=== PATIENT | male | born 1985 | race Caucasian/White ===

== ENCOUNTER 2018-10-12 09:23 | Emergency (ER) | payer MEDICARE, MEDICAID, SELFPAY ==
[2018-10-12 09:28] VITALS: BP 122/78; PULSE 84; RESP 18; TEMP 37.3; O2SAT 98
--- NOTE | 2018-10-12 09:37 | W.ED.GENAD ---
Discharge Plan Disposition Patient Disposition: HOME Condition: Poor Discharge Details Chief Complaint: DrugWithdr Clinical Impression: Heroin addiction Primary Care Provider: None,None ED Provider: Sherri Karimi Home Meds and New Rx's Prescriptions: New Narcan 4 mg/actuation spray,non-aerosol 1 spray MICHEL ONCE PRN (Reason: opioid overdose) Qty: 2 RF: 0 Discharge Instructions Instructions: Narcotic Abuse (ED) Additional Instructions: You will need to contact treatment centers to discuss rehabilitation options. I did call [facility] today and they currently have bed availability. You may also reach out to [facility] to discuss local options. Attached is a list of local facilities that can help with your addiction issues. If you have any new/worsneing symptoms please seek care urgently once again. Narcan prescription is attached, you should have this on hand in the event you have an overdose. Please use as instructed by pharmasist. appointment coordinator will reach out to you with primary care physician Medical Decision Making Patient presents today with c/c of wanting to stop abusing heroin. Reports is been using for quite some time, last used few hours ago. Has not made any attempt recently to stop. Has attended rehab in the past with short-term relief. Patient is not having symptoms of acute withdrawal. He does report that he gets tremors, anxious, general feeling unwell in between his usage times. However, not see any evidence of acute withdrawal at this time. Vital signs within normal limits. Spoke with Maxine with [facility] who advised that the patient needs to contact the rehab facilities. I discussed this with the patient. I did contact [facility] and they currently have bed availability and advised the patient needs to contact them. Patient reports that he has had 2 friends recently from overdose. Prescribed him Narcan to be used in the event of an overdose. At this time, with frequently the patient is using, I do not feel that prescribing him as it has been another medication to help with withdrawal is appropriate. I am concerned at this time that he uses concomitantly. He will contact [facility] and/or others on the list provided. Advised he may seek care urgently once again with any new or worsening symptom Patient does not have PCP, have asked home care associate to help establish care. HPI General Mode of arrival: ambulatory. Date/Time Provider Initiated Documentation: 10/12/18 09:36. Limitations to Documentation: no limitations. Information obtained by: patient. HPI Narrative: Patient is a 32-year-old male presenting today with chief complaint of wanting detox from heroin. Reports that he uses heroin every 2-3 hours. States that he has been using for several years. Reports that approximately 2 weeks ago he made the decision he wanted to quit. However, he states that since that time he has only increased his usage. He did attend [facility] approximately 1 year ago and reports that he was clean for 1 month. Also used to be patient at [facility] but is no longer able to attend after using profanity toward one of the providers. Has not made an attempt to recheck anybody recently. Last used a few hours ago. Related Data Home Medications Medication Instructions Recorded Confirmed naloxone [Narcan] 1 spray MICHEL ONCE PRN #2 each 10/12/18 Previous Rx's Medication Instructions Recorded naloxone [Narcan] 1 spray MICHEL ONCE PRN #2 each 10/12/18 Allergies Allergy/AdvReac Type Severity Reaction Status Date / Time No Known Allergies Allergy Unverified 10/12/18 09:38 General Stated Complaint: DrugWithdr MAXIMILIAN: 3 Review of Systems Constitutional Reports as per HPI, Denies chills, Denies fever(s), Denies headache(s) and Denies poor appetite Eyes Denies change in vision ENT Denies headache(s) Cardiovascular Denies chest pain, Denies irregular heart rhythm and Denies dyspnea Respiratory Denies cough and Denies dyspnea Gastrointestinal Denies abdominal pain, Reports nausea and Denies vomiting Musculoskeletal Denies numbness and Denies tingling Neurologic Reports as per HPI, Denies headache(s), Denies numbness, Denies seizure-like activity, Denies tingling, Denies paresthesias and Reports tremor(s) (becomes tremulous between usage times) Psychiatric Reports abnormal sleep pattern, Reports anxiety, Reports difficulty concentrating, Denies auditory hallucinations, Denies hopelessness, Denies hallucinations, Denies homicidal ideation and Denies suicidal ideation [facility] Social History Smoking/Tobacco Use Status: Current every day Exam Const General: cooperative, healthy appearing, comfortable, no acute distress, well developed and well groomed Nutritional Appearance: average body habitus and well nourished Orientation: alert and awake Eyes General: appearance normal, both eyes and all related structures Pupils: PERRL Resp Effort & Inspection: normal respiratory effort and able to speak in complete sentences Auscultation: clear to auscultation bilaterally, no rales, no rhonchi and no wheezes Cardio Rate: regular rate Rhythm: regular rhythm Heart Sounds: S1 normal and S2 normal Skin General skin exam: no rashes or lesions noted Neuro General: alert, awake and oriented x3 Cognition: normal cognition Speech: speech normal Gait: normal gait Psych Appearance: grossly normal and well kempt Mental Status: mental status grossly normal Speech and Movement: speech and movement normal Course Vital Signs Temperature 37.3 C 10/12/18 09:28 Pulse 84 10/12/18 09:28 Respiratory Rate 18 10/12/18 09:28 Blood Pressure 122/78 10/12/18 09:28 Pulse Oximetry 98 10/12/18 09:28 Temperature 37.3 C 10/12/18 09:28 Temperature Source Temporal Artery Scan 10/12/18 09:28 Pulse 84 10/12/18 09:28 Respiratory Rate 18 10/12/18 09:28 Blood Pressure 122/78 10/12/18 09:28 Blood Pressure Position Sitting 10/12/18 09:28 Pulse Oximetry 98 10/12/18 09:28 Oxygen Delivery Method Room Air 10/12/18 09:28 Oxygen Flow Rate 0 10/12/18 09:28 Pain Level 8 10/12/18 09:28
--- NOTE | 2018-10-12 09:53 | ED.GENADUL_ITS ---
Discharge Plan Disposition Patient Disposition: HOME Condition: Poor Discharge Details Chief Complaint: DrugWithdr Clinical Impression: Heroin addiction Primary Care Provider: None,None ED Provider: Sherri Karimi Home Meds and New Rx's Prescriptions: New Narcan 4 mg/actuation spray,non-aerosol 1 spray MICHEL ONCE PRN (Reason: opioid overdose) Qty: 2 RF: 0 Discharge Instructions Instructions: Narcotic Abuse (ED) Additional Instructions: You will need to contact treatment centers to discuss rehabilitation options. I did call [facility] today and they currently have bed availability. You may also reach out to [facility] to discuss local options. Attached is a list of local facilities that can help with your addiction issues. If you have any new/worsneing symptoms please seek care urgently once again. Narcan prescription is attached, you should have this on hand in the event you have an overdose. Please use as instructed by pharmasist. resource coordinator will reach out to you with primary care physician Medical Decision Making Patient presents today with c/c of wanting to stop abusing heroin. Reports is been using for quite some time, last used few hours ago. Has not made any attempt recently to stop. Has attended rehab in the past with short-term relief. Patient is not having symptoms of acute withdrawal. He does report that he gets tremors, anxious, general feeling unwell in between his usage times. However, not see any evidence of acute withdrawal at this time. Vital signs within normal limits. Spoke with Maxine with [facility] who advised that the patient needs to contact the rehab facilities. I discussed this with the patient. I did contact [facility] and they currently have bed availability and advised the patient needs to contact them. Patient reports that he has had 2 friends recently from overdose. Prescribed him Narcan to be used in the event of an overdose. At this time, with frequently the patient is using, I do not feel that prescribing him as it has been another medication to help with withdrawal is appropriate. I am concerned at this time that he uses concomitantly. He will contact [facility] and/or others on the list provided. Advised he may seek care urgently once again with any new or worsening symptom Patient does not have PCP, have asked care transitions nurse to help establish care. HPI General Mode of arrival: ambulatory . Date/Time Provider Initiated Documentation: 10/12/18 09:36 . Limitations to Documentation: no limitations . Information obtained by: patient . HPI Narrative: Patient is a 32-year-old male presenting today with chief complaint of wanting detox from heroin. Reports that he uses heroin every 2-3 hours. States that he has been using for several years. Reports that approximately 2 weeks ago he made the decision he wanted to quit. However, he states that since that time he has only increased his usage. He did attend [facility] approximately 1 year ago and reports that he was clean for 1 month. Also used to be patient at [facility] but is no longer able to attend after using profanity toward one of the providers. Has not made an attempt to recheck anybody recently. Last used a few hours ago. Related Data Home Medications Medication Instructions Recorded Confirmed naloxone [Narcan] 1 spray MICHEL ONCE PRN #2 each 10/12/18 Previous Rx's Medication Instructions Recorded naloxone [Narcan] 1 spray MICHEL ONCE PRN #2 each 10/12/18 Allergies Allergy/AdvReac Type Severity Reaction Status Date / Time No Known Allergies Allergy Unverified 10/12/18 09:38 General Stated Complaint: DrugWithdr MAXIMILIAN: 3 Review of Systems Constitutional Reports as per HPI, Denies chills, Denies fever(s), Denies headache(s) and Denies poor appetite Eyes Denies change in vision ENT Denies headache(s) Cardiovascular Denies chest pain, Denies irregular heart rhythm and Denies dyspnea Respiratory Denies cough and Denies dyspnea Gastrointestinal Denies abdominal pain, Reports nausea and Denies vomiting Musculoskeletal Denies numbness and Denies tingling Neurologic Reports as per HPI, Denies headache(s), Denies numbness, Denies seizure-like activity, Denies tingling, Denies paresthesias and Reports tremor(s) (becomes tremulous between usage times) Psychiatric Reports abnormal sleep pattern, Reports anxiety, Reports difficulty concentrating, Denies auditory hallucinations, Denies hopelessness, Denies hallucinations, Denies homicidal ideation and Denies suicidal ideation [facility] Social History Smoking/Tobacco Use Status: Current every day Exam Const General: cooperative, healthy appearing, comfortable, no acute distress, well developed and well groomed Nutritional Appearance: average body habitus and well nourished Orientation: alert and awake Eyes General: appearance normal, both eyes and all related structures Pupils: PERRL Resp Effort & Inspection: normal respiratory effort and able to speak in complete sentences Auscultation: clear to auscultation bilaterally, no rales, no rhonchi and no wheezes Cardio Rate: regular rate Rhythm: regular rhythm Heart Sounds: S1 normal and S2 normal Skin General skin exam: no rashes or lesions noted Neuro General: alert, awake and oriented x3 Cognition: normal cognition Speech: speech normal Gait: normal gait Psych Appearance: grossly normal and well kempt Mental Status: mental status grossly normal Speech and Movement: speech and movement normal Course Vital Signs Temperature 37.3 C 10/12/18 09:28 Pulse 84 10/12/18 09:28 Respiratory Rate 18 10/12/18 09:28 Blood Pressure 122/78 10/12/18 09:28 Pulse Oximetry 98 10/12/18 09:28 Temperature 37.3 C 10/12/18 09:28 Temperature Source Temporal Artery Scan 10/12/18 09:28 Pulse 84 10/12/18 09:28 Respiratory Rate 18 10/12/18 09:28 Blood Pressure 122/78 10/12/18 09:28 Blood Pressure Position Sitting 10/12/18 09:28 Pulse Oximetry 98 10/12/18 09:28 Oxygen Delivery Method Room Air 10/12/18 09:28 Oxygen Flow Rate 0 10/12/18 09:28 Pain Level 8 10/12/18 09:28
--- NOTE | 2018-10-13 07:55 | PDOC.ERCMPRO ---
Care Management Progress Note 10/13-Sherri ZAMBRANO requested assistance with establishing primary care. Patient does not need ED f/u. Dr. Lainez software engineer web applications. Referral faxed to [facility] this .
--- NOTE | 2018-10-13 07:56 | CMPROGNOTE_ITS ---
Care Management Progress Note 10/13-Sherri ZAMBRANO requested assistance with establishing primary care. Patient does not need ED f/u. Dr. Lainez sand conditioner machine. Referral faxed to [facility] this .
== END 2018-10-12 10:48 | disposition home or self-care (01) ==
LOC: ER 10:50
PROVIDERS: Emergency Provider Physician Assistant
DX: F11.10 Opioid abuse, uncomplicated (principal)
CPT/HCPCS: 99284

== ENCOUNTER → 2024-02-04 01:58 | Outpatient (CLI) | payer MEDICARE, MEDICAID, SELFPAY ==
--- NOTE | 2024-02-04 13:00 | DI.CT_ITS ---
Exam(s) CT CHEST PE CTA EXAM: CT CHEST PE CTA CLINICAL HISTORY: COUGH WITH HEMOPTYSIS,R04.2,DYSPNEA,R06.09,?PE. TECHNIQUE: Imaging Protocol: Axial CT angiography was performed with multi-slice acquisition and mu lti-planar reconstructions as well as axial, coronal and sagittal MIP reconstructions. CONTRAST MATERIAL: Intravenous: Omnipaque 350 Contrast volume:100 ml COMPARISON: No exams were available for comparison FINDINGS: Pulmonary Arteries: No evidence of filling defect to suggest pulmonary emboli. Tracheobronchial tree: No mucous plugging. Mediastinum and Elizabeth: No dominant adenopathy or fluid collection. Pulmonary parenchyma: No consolidation or dominant measurable mass. Pleura: No effusion or pneumothorax. Heart: The heart is not dilated. No coronary artery calcifications are seen. Aorta: Thoracic aorta non-dilated. No dissection. Upper abdomen: No acute findings. Bones: Unremarkable for age. Tubes, Catheters, and Lines: None Soft tissues: Unremarkable. IMPRESSION: Negative chest CT. No evidence of pulmonary embolism. RADIATION DOSE DELIVERED: 294.28mGy.cm Total DLP DATA REPOSITORY: All CT scans at this facility are submitted to the National Radiology Data Registry (NRDR) Dose Index Registry (DIR) with the [employer] ([employer]). RADIATION OPTIMIZATION: All CT scans at this facility use at least one of these dose optimization te chniques: automated exposure control; mA and/or kV adjustment per patient size (includes targeted exa ms where dose is matched to clinical indication); or iterative reconstruction.
[2024-02-04] MEDS: Omnipaque 350 MG/ML 100 ML BTL IJ (13:13)
[2024-02-04] MEDS: Normal Saline - Diluent 50 ML VIAL IJ (13:14)
== END ==
PROVIDERS: Visit Provider Registered Nurse
DX: R04.2 Hemoptysis (principal)
CPT/HCPCS: 71275; J3490